=== PATIENT | female | born 2000 | race African-American/Black ===

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

== ENCOUNTER 2020-03-15 08:36 | Emergency (ER) | payer OTHER ==
[2020-03-15] MEDS ORDERED: Lidocaine 2% PF 5 ML VIAL ONE (09:17)
[2020-03-15] MEDS ORDERED: Bacitracin 1 PK ONE (09:17)
== END 2020-03-15 10:24 | disposition home or self-care (01) ==
LOC: BURERS 08:36
DX: L02.214 Cutaneous abscess of groin (principal)
CPT/HCPCS: 10060; J2001

== ENCOUNTER 2020-03-17 12:55 | Emergency (ER) | payer OTHER | END 2020-03-17 13:10 | disposition home or self-care (01) | LOC: BURERS 12:55 | DX: L02.416 Cutaneous abscess of left lower limb (principal) | CPT/HCPCS: 99282 ==

== ENCOUNTER 2020-03-28 21:37 | Emergency (ER) | payer OTHER ==
[2020-03-28 22:39] LABS: #Basophils 0.1 thou/uL (0.0-0.2); #Lymphocytes 1.5 thou/uL (1.20-3.40); #Monocytes 0.6 thou/uL (0.11-0.59); #Neutrophils 4.4 thou/uL (1.40-6.50); %Eosinophils 0.1 % (0.0-10.0); %Lymphocytes 22.4 % (28.0-48.0); %Monocytes 8.8 % (0.0-4.0); %Neutrophils 66.7 % (31.0-61.0); Hemoglobin 13.7 g/dL (12.0-16.0); Mean Corpuscular HGB CONC 31.3 g/dL (32.0-36.0); Mean Corpuscular Volume 76.8 fL (78.0-98.0); Mean Platelet Volume 7.8 fL (7.4-10.4); Platelet Count 183 thou/uL (130-400); RBC Distribution Width 13.7 % (11.5-14.5); Red Blood Cell (RBC) Count 5.72 mill/uL (4.00-5.20); White Blood Cell (WBC) Count 6.7 thou/uL (4.8-10.8)
[2020-03-28 22:43] LABS: BHCG - Serum Negative (NEGATIVE); Pregs Control Background? CLEAR/WHITE (CLR/WHITE); Pregs Control Bar Appear? YES (CONTROL BAR)
[2020-03-28 22:47] LABS: ALT (SGPT) 25 U/L (8-55); AST (SGOT) 18 U/L (5-30); Alkaline Phosphatase 72 U/L (40-100); Anion Gap 14 mmol/L (10-20); BUN (Urea Nitrogen) 6 mg/dL (8.4-21.0); Bilirubin, Total 0.3 mg/dL (0.2-1.2); Calc. Creatinine Clearance 0 mL/min (70-130); Calcium 8.3 mg/dL (7.8-10.44); Carbon Dioxide 26 mmol/L (22-29); Chloride 103 mmol/L (98-107); Globulin 3.6 g/dL (2.4-3.5); Glucose 88 mg/dL (70-105); Potassium 3.7 mmol/L (3.5-5.1); Protein, Total 7.6 g/dL (6.0-8.3); Sodium 139 mmol/L (136-145)
[2020-03-28 22:59] LABS: Platelet Morphology Comment Appears Adequate; RBC Morphology Normal
--- NOTE | 2020-03-29 06:53 | RAD ---
PORTABLE CHEST: Date: 03/28/2020 An AP portable film at 2214 hours is compared with the 11/21/2018 study. The heart is normal in size and the lungs are clear. No infiltrate or effusion seen. There is no sign of pneumonia. IMPRESSION: No acute thoracic finding. POS: HOME
[2020-03-29 17:09] LABS: SARS-CoV-2 MS2 Positive; SARS-CoV-2 N Gene Positive; SARS-CoV-2 S Gene Positive; SARS-CoV-2 by NAA DETECTED (NotDetected); SARS-CoV-2 orf1ab Positive
== END 2020-03-28 22:55 | disposition home or self-care (01) ==
LOC: BURERS 21:37
DX: U07.1 COVID-19 (principal); J06.9 Acute upper respiratory infection, unspecified
CPT/HCPCS: 71045; 80053; 84703; 85025; 85379; 87635; 87804; U0003

== ENCOUNTER 2021-10-14 07:52 | Emergency (ER) | payer BC, OTHER ==
[2021-10-14] MEDS ORDERED: Acetaminophen 500 MG TAB ONE (08:06)
[2021-10-14] MEDS ORDERED: Lidocaine 1% w/Epinephrine 1:100K 20 ML VIAL ONE (08:06)
[2021-10-14] MEDS ORDERED: Sulfameth/Trimethoprim DS 800-160mg TAB ONE (08:50)
== END 2021-10-14 08:54 | disposition home or self-care (01) ==
LOC: BURERS 07:52
DX: L05.91 Pilonidal cyst without abscess (principal)
CPT/HCPCS: 10080

== ENCOUNTER 2022-08-23 15:20 | Emergency (ER) | payer BC ==
[2022-08-23] MEDS ORDERED: Meclizine HCl 25 MG TAB ONE (15:58)
[2022-08-23 16:02] LABS: Bilirubin Negative (Negative); Blood, Urine Negative (Negative); Clarity Cloudy (Clear); Glucose, Urine (Dipstick) Negative (Negative); Ketone, Urine 15 mg/dL (Negative); Leukocyte Negative (Negative); Nitrite Negative (Negative); Protein, Urine (Dipstick) Negative (Neg-Trace); Specific Gravity, Urine 1.025 (1.005-1.030)
[2022-08-23 16:02] LABS: #Lymphocytes 1.9 thou/uL (1.20-3.40); #Monocytes 0.4 thou/uL (0.11-0.59); #Neutrophils 4.1 thou/uL (1.40-6.50); %Basophils 0.6 % (0.0-1.0); %Eosinophils 0.6 % (0.0-10.0); %Lymphocytes 29.2 % (21.0-51.0); %Monocytes 6.3 % (0.0-10.0); %Neutrophils 63.3 % (42.0-75.0); Hemoglobin 11.6 g/dL (12.0-16.0); Mean Corpuscular HGB CONC 30.2 g/dL (32.0-36.0); Mean Corpuscular Hemoglobin 23.6 pg (27.0-31.0); Platelet Count 195 10x3/uL (130-400); RBC Distribution Width 13.8 % (11.5-14.5); White Blood Cell (WBC) Count 6.5 10x3/uL (4.8-10.8)
[2022-08-23 16:04] LABS: MDiff Complete? YES
[2022-08-23 16:19] LABS: BHCG - Serum Negative (NEGATIVE); Pregs Control Background? CLEAR/WHITE (CLR/WHITE); Pregs Control Bar Appear? YES (CONTROL BAR)
[2022-08-23 16:22] LABS: Anion Gap 14 mmol/L (10-20); BUN (Urea Nitrogen) 10 mg/dL (7.0-18.7); CK (CPK) 130 U/L (29-168); Calc. Creatinine Clearance 0 mL/min (70-130); Calcium 9.2 mg/dL (7.8-10.44); Carbon Dioxide 22 mmol/L (22-29); Chloride 106 mmol/L (98-107); Estimated GFR 114; Glucose 78 mg/dL (70-105); Potassium 3.9 mmol/L (3.5-5.1); Sodium 138 mmol/L (136-145)
== END 2022-08-23 17:12 | disposition home or self-care (01) ==
LOC: BURERS 15:20
DX: R42 Dizziness and giddiness (principal)
CPT/HCPCS: 70450; 80048; 81003; 82550; 83735; 84443; 84703; 85025; 96360

== ENCOUNTER 2023-01-02 05:37 | Emergency (ER) | payer BC ==
[2023-01-02] MEDS ORDERED: Ondansetron ODT 4 MG TAB ONE (05:46)
[2023-01-02 07:49] LABS: Bilirubin Negative (Negative); Blood, Urine Negative (Negative); Clarity Clear (Clear); Glucose, Urine (Dipstick) Negative (Negative); Ketone, Urine Negative (Negative); Leukocyte Negative (Negative); Nitrite Negative (Negative); Protein, Urine (Dipstick) Negative (Neg-Trace); Specific Gravity, Urine 1.025 (1.005-1.030); Urobilinogen 0.2 mg/dL (Less than 2)
[2023-01-02 07:56] LABS: Bacteria/HPF 1+ HPF (None Seen); CAUTI Indications for Culture Dysuria,urgency,freq; Pregnancy Test - Urine (BHCG) Negative (Negative); Pregu Control Background? CLEAR/WHITE (CLR/WHITE); Pregu Control Bar Appear? YES (CONTROL BAR); RBC/HPF 0-3 HPF (0-3); Specific Gravity 1.025 (1.002-1.036); Squamous Epithelial 0-3 HPF (0-3); WBC/HPF None Seen HPF (0-3)
[2023-01-02 07:57] LABS: Urine Culture Reflex No No
== END 2023-01-02 07:40 | disposition home or self-care (01) ==
LOC: BURERS 05:37
DX: R11.2 Nausea with vomiting, unspecified (principal); R19.7 Diarrhea, unspecified
CPT/HCPCS: 81001; 81025; 99284; Q0162

== ENCOUNTER 2025-03-25 07:00 | Emergency (ER) | payer BC ==
[2025-03-25 07:43] LABS: Pregnancy Test - Urine (BHCG) Negative (Negative); Pregu Control Background? CLEAR/WHITE (CLR/WHITE); Pregu Control Bar Appear? YES (CONTROL BAR)
[2025-03-25 07:47] LABS: #Basophils 0.1 thou/uL (0.0-0.2); #Eosinophils 0.1 thou/uL (0.0-0.7); #Lymphocytes 1.9 thou/uL (1.20-3.40); #Monocytes 0.9 thou/uL (0.11-0.59); #Neutrophils 8.3 thou/uL (1.40-6.50); %Basophils 0.8 % (0.0-1.0); %Eosinophils 0.4 % (0.0-10.0); %Lymphocytes 16.8 % (21.0-51.0); %Monocytes 8.0 % (0.0-10.0); %Neutrophils 73.9 % (42.0-75.0); Hematocrit 42.2 % (36.0-47.0); Hemoglobin 13.3 g/dL (12.0-16.0); Mean Corpuscular Hemoglobin 24.5 pg (27.0-31.0); Mean Corpuscular Volume 77.5 fl (78.0-98.0); Platelet Count 241 10x3/uL (130-400); Red Blood Cell (RBC) Count 5.44 mill/uL (4.20-5.40); White Blood Cell (WBC) Count 11.3 10x3/uL (4.8-10.8)
[2025-03-25 07:52] LABS: Glucose, Urine (Dipstick) Negative (Negative); Leukocyte Negative (Negative); Protein, Urine (Dipstick) Negative (Neg-Trace); Specific Gravity, Urine 1.020 (1.005-1.030)
[2025-03-25 07:56] LABS: ALT (SGPT) 29 U/L (Less than 34); AST (SGOT) 21 U/L (11-34); Albumin 4.7 g/dL (3.1-4.5); Alkaline Phosphatase 67 U/L (40-110); Anion Gap 15 mmol/L (10-20); BUN (Urea Nitrogen) 10 mg/dL (7.0-18.7); Bilirubin, Total 0.8 mg/dL (0.3-1.2); Calc. Creatinine Clearance 0 mL/min (70-130); Calcium 9.1 mg/dL (7.8-10.44); Carbon Dioxide 25 mmol/L (22-29); Chloride 105 mmol/L (98-107); Globulin 3.5 g/dL (2.4-3.5); Glucose 69 mg/dL (70-105); Potassium 3.6 mmol/L (3.5-5.1); Sodium 141 mmol/L (136-145)
[2025-03-25 08:07] LABS: RBC/HPF 0-3 HPF (0-3)
[2025-03-25 08:08] LABS: Bacteria/HPF 1+ HPF (None Seen); CAUTI Indications for Culture Dysuria,urgency,freq; Mucous/LPF 1+ LPF (<2+); WBC/HPF 0-3 HPF (0-3)
[2025-03-25 08:09] LABS: MDiff Complete? YES
[2025-03-25 08:09] LABS: Urine Culture Reflex No No
== END 2025-03-25 08:52 | disposition home or self-care (01) ==
LOC: BURERS 07:00
DX: R11.2 Nausea with vomiting, unspecified (principal); R19.7 Diarrhea, unspecified; F17.290 Nicotine dependence, other tobacco product, uncomplicated
CPT/HCPCS: 36415; 80053; 81001; 81025; 85025; 99283